=== PATIENT | female | born 2000 | race Caucasian/White ===

== ENCOUNTER 2023-10-24 14:37 | Emergency (ER) | payer SELFPAY ==
[~2023-10-24] VITALS: Ht 152.4 cm; Wt 40.8 kg
[2023-10-24] MEDS ORDERED: HYDROCODONE/APAP 5/325MG TABLET ONE (16:16)
[2023-10-24] MEDS ORDERED: HYDROCODONE/APAP 5/325MG TABLET PO ONE (16:30)
[2023-10-24] MEDS ORDERED: HYDR-4303 PO (16:48)
[2023-10-24 17:05] VITALS: BP 120/70; TEMP 98.2; O2SAT 100
== END 2023-10-24 17:06 | disposition home or self-care (01) ==
LOC: ER 14:45
DX: S13.8XXA Sprain of joints and ligaments of other parts of neck, initial encounter (principal); S93.491A Sprain of other ligament of right ankle, initial encounter; S40.012A Contusion of left shoulder, initial encounter; Z88.1 Allergy status to other antibiotic agents; V89.2XXA Person injured in unspecified motor-vehicle accident, traffic, initial encounter; Y93.89 Activity, other specified; Y92.89 Other specified places as the place of occurrence of the external cause; Y99.8 Other external cause status
CPT/HCPCS: 71045-TC; 72040-TC; 73030-TC; 73564-TC; 73610-TC